=== PATIENT | female | born 1960 ===

== ENCOUNTER → 2018-08-17 07:36 | Outpatient (CLI) | payer OTHER | END | disposition home or self-care (01) | LOC: LAB 07:36 | DX: D64.89 Other specified anemias (principal); N39.0 Urinary tract infection, site not specified; R19.09 Other intra-abdominal and pelvic swelling, mass and lump; Z01.818 Encounter for other preprocedural examination ==

== ENCOUNTER 2018-08-21 14:15 | Inpatient (IN) | payer OTHER ==
[~2018-08-21] VITALS: Ht 167.6 cm; Wt 54.9 kg
== END 2018-08-25 14:06 | disposition home or self-care (01) | DRG 743 ==
LOC: EDUNIT# 14:15 → O/R 08-23 05:30 → OB/GYN 08-23 05:30 → SURH 08-23 12:30 → OB/GYN 08-23 17:30
PROVIDERS: Obstetrics & Gynecology Gynecologic Oncology
PROC: 0UT20ZZ Resection of Bilateral Ovaries, Open Approach (ICD-10-PCS; 2018-08-23)
PROC: 0UT70ZZ Resection of Bilateral Fallopian Tubes, Open Approach (ICD-10-PCS; 2018-08-23)
PROC: 0DBW0ZZ Excision of Peritoneum, Open Approach (ICD-10-PCS; 2018-08-23)
PROC: 0UT90ZZ Resection of Uterus, Open Approach (ICD-10-PCS; principal; 2018-08-23 12:30)
DX: D25.1 Intramural leiomyoma of uterus (principal); D27.1 Benign neoplasm of left ovary